=== PATIENT | female | born 1940 | race Caucasian/White ===

== ENCOUNTER → 2022-06-15 | Outpatient (CLI) | payer MEDICARE, BC ==
[2022-06-15 14:03] LABS: Adenovirus F 40/41 Not Detected (NOT DETECT); Astrovirus Not Detected (NOT DETECT); Campylobacter Sp Not Detected (NOT DETECT); Cryptosporidium Not Detected (NOT DETECT); Cyclospora Cayetanensis Not Detected (NOT DETECT); E. Coli O157 Not Detected (NOT DETECT); Entamoeba Histolytica Not Detected (NOT DETECT); Enteroaggregative E. coli-EAEC Not Detected (NOT DETECT); Enteropathogenic E. coli-EPEC Not Detected (NOT DETECT); Enterotoxigenic E. coli-ETEC Not Detected (NOT DETECT); Giardia Lamblia Not Detected (NOT DETECT); Norovirus GI/GII Not Detected (NOT DETECT); Plesiomonas Shigelloides Not Detected (NOT DETECT); Rotavirus A Not Detected (NOT DETECT); Salmonella Sp Not Detected (NOT DETECT); Sapovirus Not Detected (NOT DETECT); Shiga Toxin-prod E. coli-STEC Not Detected (NOT DETECT); Shigella/Enteroin E. coli-EIEC Not Detected (NOT DETECT); Vibrio Cholerae Not Detected (NOT DETECT); Vibrio Sp Not Detected (NOT DETECT); Yersinia Enterocolitica Not Detected (NOT DETECT)
== END | disposition home or self-care (01) ==
LOC: LAB SHORT 11:56 → LAB 11:56
PROVIDERS: Family Medicine
DX: R19.7 Diarrhea, unspecified (principal)
CPT/HCPCS: 87507

== ENCOUNTER 2023-03-03 09:00 | Observation (INO) | payer MEDICARE, BC ==
[~2023-03-03] VITALS: Ht 149.9 cm; Wt 49.5 kg
[~2023-03-03 09:00] MED LIST: ACET500 PO; AMLO5 PO; ASPI81CH PO; ATOR10 PO; Robaxin750 MG PO; TRAZ50 PO
[2023-03-04 20:50] LABS: BASOPHILS ABSOLUTE AUTO 0.25 K/mm3 (0.00-0.23); BASOPHILS PERCENT AUTO 2 % (0-2); EOSINOPHILS ABSOLUTE AUTO 0.35 K/mm3 (0.00-0.68); EOSINOPHILS PERCENT AUTO 2 % (0-6); Hematocrit 49.2 % (33.0-51.0); Hemoglobin 15.2 g/dL (11.5-16.0); IMMATURE GRAN PERCENT AUTO 1 % (0-1); LYMPHOCYTES ABSOLUTE AUTO 0.81 K/mm3 (0.84-5.20); LYMPHOCYTES PERCENT AUTO 6 % (21-46); MONOCYTES ABSOLUTE AUTO 1.01 K/mm3 (0.16-1.47); MONOCYTES PERCENT AUTO 7 % (4-13); Mean Corpuscular HGB 24.2 pg (26.0-34.0); Mean Corpuscular HGB Conc 30.9 g/dL (31.5-36.5); Mean Corpuscular Volume 79 fL (80-100); NEUTROPHILS ABSOLUTE AUTO 11.83 K/mm3 (1.96-9.15); NEUTROPHILS PERCENT AUTO 83 % (41-73); Platelet Count 528 K/mm3 (150-400); RDW Coefficient Variation 20.5 % (11.7-14.2); RDW Standard Deviation 55.9 fL (35.1-46.3); Red Blood Cell Count 6.27 M/mm3 (3.80-5.20); White Blood Cell Count 14.35 K/mm3 (4.00-11.30)
[2023-03-04 20:55] LABS: Mean Platelet Volume 11.2 fL (9.1-12.4)
[2023-03-04 20:57] VITALS: BP 166/105
[2023-03-04 21:13] LABS: Albumin, Blood 2.9 g/dL (3.4-5.0); Albumin/Globulin Ratio 0.7 (0.8-1.8); Bilirubin, Total 0.5 mg/dL (0.1-1.0); Bun/Creatinine Ratio 31.8 (12.0-20.0); Calcium, Blood 8.9 mg/dL (8.5-10.1); Creatinine, Blood 0.54 mg/dL (0.40-1.00); Total Protein, Blood 6.9 g/dL (6.4-8.2)
[2023-03-05 05:13] VITALS: BP 219/121
[2023-03-05 05:15] VITALS: BP 207/110
[2023-03-05 05:49] VITALS: BP 136/73
--- NOTE | 2023-03-05 06:54 | NUR ---
AOX4 BUT FORGETFUL AND ANXIOUS, HYPERTENSIVE, BEDREST, CONTINENT. ADMITTED AROUND 2100 LAST NIGHT. SKIN CLEAR EXCEPT FOR BRUISING FROM FALL. HYDRALAZINE EFFECTIVE FOR HYPERTENSION. PAIN MANAGED WITH SCHEDULED MEDS UNTIL PT REPORTED A HEAD ACHE NEAR END OF SHIFT, PRN OXY 5 MG GIVEN. CALLS APPROPRIATELY.
[2023-03-05 07:31] VITALS: BP 118/60
[2023-03-05] MEDS ORDERED: ACET325 PO (12:18)
[2023-03-05] MEDS ORDERED: TRAM50 PO (12:18)
[2023-03-05 15:06] VITALS: BP 128/58
--- NOTE | 2023-03-05 18:17 | NUR ---
DISCHARGE SUMMARY S/P COMPRESSION FX, A/OX4, VSS, TOLERATING PO, WORKED WITH THERAPY BUT HAD SOME STRUGGLES WITH STANDING AT THE BEDSIDE D/T GENERALIZED WEAKNESS AND FEAR. SHE DISCUSSED WITH PT AND THIS RN ABOUT HAVE A FEAR OF FALLING WHILE SHE WAS TRYING TO STAND. OTHER THAN WEAKNESS SHE WAS REPORTED TO BE STABLE TO DISCHARGE. DISCUSSED DISCHARGE INFORMATION WITH THE PATIENT AND HER DAUGHTER (BOOGIE) INCLUDING HOME CARE, MEDICATIONS, AND FOLLOW UP APPOINTMENTS WITH HER PCP. NO QUESTIONS AT TIME OF DISCHARGE, IV ACCESS REMOVED AND NO DEVICES IN PLACE AT TIME OF DC. SHE WAS PICKED UP BY EMS TO GO HOME VIA [facility].
[2023-03-18] MEDS ORDERED: ELIQUIS2.5 MG PO (11:44)
[2023-03-18] MEDS ORDERED: DOCU100 PO (11:44)
[2023-03-18] MEDS ORDERED: OCUFLOX511 LEFTEAR (11:45)
[2023-03-18] MEDS ORDERED: SENNA LAXATIVE8.6 MG PO (11:46)
[2023-03-18] MEDS ORDERED: OXYB5 PO (12:43)
[2023-04-09] MEDS ORDERED: LOSARTAN POTASS25 M2 PO (09:06)
[2023-04-12] MEDS ORDERED: MORP20L PO (10:21)
[2023-04-12] MEDS ORDERED: ATROPINE SULFATE2 M1 SL (10:22)
[2023-04-12] MEDS ORDERED: OXYB5 PO (10:24)
[2023-04-12] MEDS ORDERED: Ativan1 MG PO (10:24)
== END 2023-03-05 17:44 | disposition home health service (06) ==
LOC: ER 09:00 → MEDS 09:01 → ER 03-04 09:01 → MEDS 03-04 20:53 → ENPENDDIS 03-05 10:15 → MEDS 03-05 17:44
PROVIDERS: Emergency Medicine; ADMIT Internal Medicine
DX: S22.089A Unspecified fracture of T11-T12 vertebra, initial encounter for closed fracture (principal); S32.019A Unspecified fracture of first lumbar vertebra, initial encounter for closed fracture; S32.029A Unspecified fracture of second lumbar vertebra, initial encounter for closed fracture; S32.039A Unspecified fracture of third lumbar vertebra, initial encounter for closed fracture; Y04.2XXA Assault by strike against or bumped into by another person, initial encounter; E78.5 Hyperlipidemia, unspecified; Z86.73 Personal history of transient ischemic attack (TIA), and cerebral infarction without residual deficits; I10 Essential (primary) hypertension; S93.401A Sprain of unspecified ligament of right ankle, initial encounter
CPT/HCPCS: 73502; 73610; 80053; 85025; 96361; 96372; 96372-59; 96374; 96375; 97110; 97162; 97530; 99285-25; A9270; G0378; J0360; J1650; J1885; J3010; J7120

== ENCOUNTER 2023-03-13 05:03 | Emergency (ER) | payer MEDICARE, BC ==
[~2023-03-13] VITALS: Ht 157.5 cm; Wt 49.4 kg
[~2023-03-13 05:03] MED LIST changes: +ACET325 PO; +TRAM50 PO
[2023-03-13 05:48] LABS: Source, Urine Voided
[2023-03-13 05:54] LABS: BASOPHILS ABSOLUTE AUTO 0.29 K/mm3 (0.00-0.23); BASOPHILS PERCENT AUTO 2 % (0-2); EOSINOPHILS ABSOLUTE AUTO 0.44 K/mm3 (0.00-0.68); EOSINOPHILS PERCENT AUTO 3 % (0-6); Hematocrit 50.4 % (33.0-51.0); Hemoglobin 15.9 g/dL (11.5-16.0); IMMATURE GRAN ABSOLUTE AUTO 0.07 K/mm3 (0.00-0.10); IMMATURE GRAN PERCENT AUTO 1 % (0-1); LYMPHOCYTES ABSOLUTE AUTO 0.99 K/mm3 (0.84-5.20); LYMPHOCYTES PERCENT AUTO 7 % (21-46); MONOCYTES ABSOLUTE AUTO 1.13 K/mm3 (0.16-1.47); MONOCYTES PERCENT AUTO 8 % (4-13); Mean Corpuscular HGB 24.2 pg (26.0-34.0); Mean Corpuscular HGB Conc 31.5 g/dL (31.5-36.5); Mean Corpuscular Volume 77 fL (80-100); NEUTROPHILS ABSOLUTE AUTO 11.56 K/mm3 (1.96-9.15); NEUTROPHILS PERCENT AUTO 80 % (41-73); Platelet Count 441 K/mm3 (150-400); RDW Coefficient Variation 19.3 % (11.7-14.2); RDW Standard Deviation 50.4 fL (35.1-46.3); Red Blood Cell Count 6.56 M/mm3 (3.80-5.20); White Blood Cell Count 14.48 K/mm3 (4.00-11.30)
[2023-03-13 05:55] LABS: Appearance, Urine Clear (Clear); Bilirubin, Urine Neg (Neg); Blood, Urine Neg (Neg); Color, Urine Yellow (P-Yellow); Glucose Qualitative, Urine Neg (Neg); Ketones, Urine Neg (Neg); Leukocyte Esterase, Urine Neg (Neg); Nitrite, Urine Neg (Neg); Protein, Urine Neg (Neg); Urobilinogen, Urine NORM (Normal)
[2023-03-13 06:15] VITALS: BP 165/99
[2023-03-13 06:17] LABS: Albumin, Blood 3.4 g/dL (3.4-5.0); Albumin/Globulin Ratio 0.8 (0.8-1.8); Bilirubin, Total 0.6 mg/dL (0.1-1.0); Bun/Creatinine Ratio 21.1 (12.0-20.0); Calcium, Blood 9.3 mg/dL (8.5-10.1); Creatinine, Blood 0.48 mg/dL (0.40-1.00); Globulin, Blood 4.1 g/dL (2.2-4.0); Total Protein, Blood 7.5 g/dL (6.4-8.2)
[2023-03-13] MEDS ORDERED: POTA10T PO (07:08)
[2023-03-18] MEDS ORDERED: DOCU100 PO (11:44)
[2023-03-18] MEDS ORDERED: ELIQUIS2.5 MG PO (11:44)
[2023-03-18] MEDS ORDERED: OCUFLOX511 LEFTEAR (11:45)
[2023-03-18] MEDS ORDERED: SENNA LAXATIVE8.6 MG PO (11:46)
[2023-03-18] MEDS ORDERED: OXYB5 PO (12:43)
[2023-04-09] MEDS ORDERED: LOSARTAN POTASS25 M2 PO (09:06)
[2023-04-12] MEDS ORDERED: MORP20L PO (10:21)
[2023-04-12] MEDS ORDERED: ATROPINE SULFATE2 M1 SL (10:22)
[2023-04-12] MEDS ORDERED: OXYB5 PO (10:24)
[2023-04-12] MEDS ORDERED: Ativan1 MG PO (10:24)
== END 2023-03-13 10:48 | disposition home or self-care (01) ==
LOC: ER 05:03
PROVIDERS: Student in an Organized Health Care Education/Training Program
DX: R25.3 Fasciculation (principal); E87.6 Hypokalemia; D72.829 Elevated white blood cell count, unspecified; I10 Essential (primary) hypertension; Z79.899 Other long term (current) drug therapy; E78.5 Hyperlipidemia, unspecified
CPT/HCPCS: 80053; 81003; 83605; 85025; 93005; 93010; 96365; 96366; 99284-25; A9270; J3475

== ENCOUNTER 2023-03-14 20:49 | Inpatient (IN) | payer MEDICARE, BC ==
[~2023-03-14] VITALS: Ht 157.5 cm; Wt 48.3 kg
[~2023-03-14 20:49] MED LIST changes: +POTA10T PO
[2023-03-14 21:16] LABS: BASOPHILS ABSOLUTE AUTO 0.29 K/mm3 (0.00-0.23); BASOPHILS PERCENT AUTO 2 % (0-2); EOSINOPHILS ABSOLUTE AUTO 0.47 K/mm3 (0.00-0.68); EOSINOPHILS PERCENT AUTO 3 % (0-6); Hematocrit 48.3 % (33.0-51.0); Hemoglobin 15.4 g/dL (11.5-16.0); IMMATURE GRAN ABSOLUTE AUTO 0.11 K/mm3 (0.00-0.10); IMMATURE GRAN PERCENT AUTO 1 % (0-1); LYMPHOCYTES ABSOLUTE AUTO 1.06 K/mm3 (0.84-5.20); LYMPHOCYTES PERCENT AUTO 6 % (21-46); MONOCYTES ABSOLUTE AUTO 1.21 K/mm3 (0.16-1.47); MONOCYTES PERCENT AUTO 7 % (4-13); Mean Corpuscular HGB 24.5 pg (26.0-34.0); Mean Corpuscular HGB Conc 31.9 g/dL (31.5-36.5); Mean Corpuscular Volume 77 fL (80-100); NEUTROPHILS ABSOLUTE AUTO 13.96 K/mm3 (1.96-9.15); NEUTROPHILS PERCENT AUTO 82 % (41-73); Platelet Count 428 K/mm3 (150-400); RDW Coefficient Variation 19.2 % (11.7-14.2); RDW Standard Deviation 49.2 fL (35.1-46.3); Red Blood Cell Count 6.28 M/mm3 (3.80-5.20)
[2023-03-14 21:27] LABS: International Normalized Ratio 1.16; Prothrombin Time Results 12.1 Sec (9.7-11.5)
[2023-03-14 21:43] LABS: Albumin, Blood 3.1 g/dL (3.4-5.0); Albumin/Globulin Ratio 0.8 (0.8-1.8); Bilirubin, Total 0.5 mg/dL (0.1-1.0); Bun/Creatinine Ratio 23.8 (12.0-20.0); Calcium, Blood 8.9 mg/dL (8.5-10.1); Creatinine, Blood 0.63 mg/dL (0.40-1.00); Globulin, Blood 3.9 g/dL (2.2-4.0); Potassium, Blood 3.7 mmol/L (3.5-5.5)
[2023-03-14 22:28] LABS: Magnesium, Blood 2.3 mg/dL (1.6-2.4)
[2023-03-14 23:00] LABS: Appearance, Urine Clear (Clear); Bilirubin, Urine Neg (Neg); Blood, Urine Neg (Neg); Color, Urine Yellow (P-Yellow); Glucose Qualitative, Urine Neg (Neg); Ketones, Urine Neg (Neg); Leukocyte Esterase, Urine Neg (Neg); Nitrite, Urine Neg (Neg); Protein, Urine Neg (Neg); Source, Urine Clean Catch; Urobilinogen, Urine 1+ (Normal)
[2023-03-15 02:41] VITALS: BP 149/136
[2023-03-15 03:23] VITALS: BP 121/70
--- NOTE | 2023-03-15 04:13 | NUR ---
SHIFT SUMMARY PT UP FROM ED, LEFT SIDED WEAKNESS. PT ALERT AND ORIENTED, SLOW TO RESPONSE AT TIMES. PT PENDING MRI AND PT/OT EVAL. PT WITH LIMITED MOBILITY TO LEFT SIDE, PT REMAINS IN BED. MEDICATED X 1 PER EMAR FOR PAIN, EFFECTIVE. WILL CONTINUE TO MONITOR. CALL LIGHT WITHIN REACH.
[2023-03-15 04:50] LABS: BASOPHILS ABSOLUTE AUTO 0.26 K/mm3 (0.00-0.23); BASOPHILS PERCENT AUTO 2 % (0-2); EOSINOPHILS ABSOLUTE AUTO 0.49 K/mm3 (0.00-0.68); EOSINOPHILS PERCENT AUTO 3 % (0-6); Hematocrit 46.3 % (33.0-51.0); Hemoglobin 14.5 g/dL (11.5-16.0); IMMATURE GRAN ABSOLUTE AUTO 0.08 K/mm3 (0.00-0.10); IMMATURE GRAN PERCENT AUTO 1 % (0-1); LYMPHOCYTES ABSOLUTE AUTO 1.17 K/mm3 (0.84-5.20); LYMPHOCYTES PERCENT AUTO 8 % (21-46); MONOCYTES ABSOLUTE AUTO 1.06 K/mm3 (0.16-1.47); MONOCYTES PERCENT AUTO 7 % (4-13); Mean Corpuscular HGB 24.4 pg (26.0-34.0); Mean Corpuscular HGB Conc 31.3 g/dL (31.5-36.5); Mean Corpuscular Volume 78 fL (80-100); NEUTROPHILS PERCENT AUTO 80 % (41-73); Platelet Count 378 K/mm3 (150-400); RDW Coefficient Variation 18.8 % (11.7-14.2); RDW Standard Deviation 51.2 fL (35.1-46.3); Red Blood Cell Count 5.94 M/mm3 (3.80-5.20); White Blood Cell Count 14.86 K/mm3 (4.00-11.30)
[2023-03-15 05:03] LABS: Mean Platelet Volume 11.3 fL (9.1-12.4)
[2023-03-15 06:38] LABS: Albumin, Blood 2.7 g/dL (3.4-5.0); Albumin/Globulin Ratio 0.8 (0.8-1.8); Bilirubin, Total 0.4 mg/dL (0.1-1.0); Bun/Creatinine Ratio 31.4 (12.0-20.0); Calcium, Blood 8.7 mg/dL (8.5-10.1); Creatinine, Blood 0.57 mg/dL (0.40-1.00); Globulin, Blood 3.6 g/dL (2.2-4.0); Magnesium, Blood 2.2 mg/dL (1.6-2.4); Potassium, Blood 3.7 mmol/L (3.5-5.5); Total Protein, Blood 6.3 g/dL (6.4-8.2)
[2023-03-15 08:10] VITALS: BP 226/106
[2023-03-15 09:46] VITALS: BP 177/96
--- NOTE | 2023-03-15 15:39 | NUR ---
PATIENT TO MRI NOW, HARD PELLET STOOLS
[2023-03-15 16:31] VITALS: BP 154/100
--- NOTE | 2023-03-15 17:48 | NUR ---
AT 1011 I WENT TO [facility] SCAN THAT PATIENT AND FOUND A LUMP WHEN BLADDER SCANNING THE PATIENT. THE NURSE TAN WAS NOTIFED WHEN I NOTICED THE LUMP.
--- NOTE | 2023-03-15 18:36 | NUR ---
PATIENT ALERT TO SELF , STAFF, AND FAMOILY, MULTIPLE REPOSITIONING AND HOURLY BED VARGHESE USE, PATIENT IMPACTED, REPORTED TO DR DAV AGUILAR DULCOLAX ORDER, MRI DONE TODAY, NO RESLUTS AVAILBLE PRESENTLY, SBP 166, DENIES H/A, CALL LIGHT WITH IN REACH, WILL RELAY TO PM RN
[2023-03-15 19:16] VITALS: BP 155/88
--- NOTE | 2023-03-15 20:40 | NUR ---
PER PHARMACY, A NEW ORDER WAS NEEDED FOR DULCOLAX FOR THE PT GIVEN IT WAS ORGINALLY ORDERED FOR 1824. A NEW ORDER WAS PUT IN FOR PO DULCOLAX.
--- NOTE | 2023-03-15 23:23 | NUR ---
NOTIIED ANNIKA POLLARD THAT THE PTS MRI RESULTS WERE BACK. NO NEW ORDERS AT THIS TIME.
[2023-03-16 03:15] VITALS: BP 166/91
--- NOTE | 2023-03-16 04:31 | NUR ---
SHIFT SUMMARY; PT CALLED Q1HR OR LESS TO REQUEST TO BE PUT ON THE BED VARGHESE AND OR BE REPOSITIONED T/O THE NIGHT. OFFERED THE PT A PUREWICK, WHICH SHE LEFT IN PLACE FOR A FEW HOURS BEFORE ENDORSING THAT THE PUREWICK WAS BURNING HER SKIN. WE THEN REMOVED THE PUREWICK FOR THE REMAINDER OF THE NIGHT. THE PT HAS HAS A FEW SMALL BM'S T/O THE NIGHT. THE LAST BM WAS A SMALL SOFT PELLET. THE PT ENDORSES BACK PAIN THIS AM, PRN TYLENOL ADMINISTERED. TELE IS IN PLACE-S[facility]US IN THE 90'S. THE PT DENIES ANY SOB, CHEST PAIN/PRESSURE OR N/V THIS SHIFT. CURRENTLY THE PT IS SLEEPING IN BED WITH THE BED IN THE LOWEST POSITION AND THE CALL LIGHT AT BEDSIDE.
[2023-03-16 05:17] LABS: Mean Corpuscular HGB 24.5 pg (26.0-34.0); Mean Corpuscular HGB Conc 31.9 g/dL (31.5-36.5); Mean Corpuscular Volume 77 fL (80-100); Platelet Count 432 K/mm3 (150-400); RDW Coefficient Variation 19.2 % (11.7-14.2); Red Blood Cell Count 6.11 M/mm3 (3.80-5.20)
[2023-03-16 05:42] LABS: Bun/Creatinine Ratio 36.2 (12.0-20.0); Calcium, Blood 8.8 mg/dL (8.5-10.1); Creatinine, Blood 0.47 mg/dL (0.40-1.00); Potassium, Blood 3.6 mmol/L (3.5-5.5)
[2023-03-16 07:47] VITALS: BP 151/92
--- NOTE | 2023-03-16 13:52 | NUR ---
DAUGHTER AT BEDSIDE, STARTED HOME PAIN MEDICATIONS, CALL LIGHT WITH IN REACH
[2023-03-16 17:49] VITALS: BP 193/85
--- NOTE | 2023-03-16 18:38 | NUR ---
PATIENT ALERT AND ORIENTED TO SELF AND STAFF, VERY FORGETFUL, FAMILY HELPFUL AT BEDSIDE, BM, VSS, HTN, STARTED TRAMADOL, PATIENT REPORTS RELIEF, FAMILY CONTACTING CASE MANAGEMENT, REPORTED TO FAMILY CASE MANAGEMENT WILL FOLLOW UP WITH THEM, CALL LIGHT WITH IN REACH, WILL RELAY TO PM RN
[2023-03-16 19:23] VITALS: BP 145/82
--- NOTE | 2023-03-17 04:26 | NUR ---
SHIFT SUMMARY; NO ACUTE CHANGES OVERNIGHT. THE PT IS AXO X3 AND BEDREST. TELE IS IN PLACE. THE PT WAS MEDICATED AT THE BEGINNING OF SHIFT FOR BACK PAIN AND HAS SINCE BEEN SLEEPING. THE PT DENIES ANY SOB OR CHEST PAIN/PRESSURE. CURRENTLY THE PT IS SLEEPING IN BED WITH THE BED IN THE LOWEST POSITION AND THE CALL LIGHT AT BEDSIDE. FIRE SAFETY WAS MAINAINED T/O THE SHIFT.
[2023-03-17 04:50] VITALS: BP 128/67
[2023-03-17 07:37] VITALS: BP 123/63
--- NOTE | 2023-03-17 10:41 | NUR ---
DR DEMARCO ROUNDED, PATIENT REPORTS FEELING MUCH BETTER TODAY WITH THE TRAMADOL ON BOARD, ALERT AND OREINTED SELF STAFF THING AND PLACE. NO ACUTE CHANGES, NO MEDICATION OR TREATMENT CHANGES FROM DR DEMARCO, CALL LIGHT WITH IN REACH
--- NOTE | 2023-03-17 13:26 | NUR ---
PATIENT HAS A FRIEND VISITING
[2023-03-17 15:57] VITALS: BP 106/55
--- NOTE | 2023-03-17 18:34 | NUR ---
NO ACUTE CHANGES, ALERTNESS AND ORIENTATION IMPROVED, MORE PLEASANT TO CARE, MEDICATED WITH TRAMADOL AND TYLENOL, FAMILY VISITED THROUGH OUT THE DAY, PALLIATIVE CARE CONSULT ENTERED, CASE MANAGEMENT ASSIGNED, LEFT SIDED WEEAKNESS, CALL LIGHT WITH IN REACH, MAKES NEEDS KNOWN, WILL RELAY TO PM RN
[2023-03-17 19:57] VITALS: BP 115/61
[2023-03-18 04:18] VITALS: BP 145/68
--- NOTE | 2023-03-18 05:25 | NUR ---
SHIFT SUMMARY; NO ACUTE CHANGES OVERNIGHT. THE PT IS AXO X4 AND BEDREST R/T WEAKNESS. THE PT SLEPT FOR THE MAJORITY OF THE NIGHT. THE PT WAS MEDICATED A FEW TIMES FOR BACK PAIN W/ GOOD RELIEF. THE PT DENIES ANY SOB, CHEST PAIN/PRESSURE OR N/V AT THIS TIME. CURRENLTY THE PT IS SLEPEING IN BED WITH THE BED IN THE LOWEST POSITION AND THE CALL LIGHT AT BEDSIDE. FIRE SAFETY MAINTAINED T/O THE SHIFT.
[2023-03-18 06:16] LABS: Hematocrit 46.1 % (33.0-51.0); Hemoglobin 14.1 g/dL (11.5-16.0); Mean Corpuscular HGB 24.2 pg (26.0-34.0); Mean Corpuscular HGB Conc 30.6 g/dL (31.5-36.5); Mean Corpuscular Volume 79 fL (80-100); Mean Platelet Volume 11.4 fL (9.1-12.4); Platelet Count 492 K/mm3 (150-400); RDW Coefficient Variation 18.7 % (11.7-14.2); RDW Standard Deviation 52.4 fL (35.1-46.3); Red Blood Cell Count 5.83 M/mm3 (3.80-5.20); White Blood Cell Count 12.97 K/mm3 (4.00-11.30)
[2023-03-18 07:35] VITALS: BP 172/88
[2023-03-18 11:43] LABS: Albumin, Blood 2.6 g/dL (3.4-5.0); Albumin/Globulin Ratio 0.8 (0.8-1.8); Bilirubin, Total 0.3 mg/dL (0.1-1.0); Calcium, Blood 8.6 mg/dL (8.5-10.1); Creatinine, Blood 0.54 mg/dL (0.40-1.00); Globulin, Blood 3.4 g/dL (2.2-4.0); Potassium, Blood 4.2 mmol/L (3.5-5.5)
[2023-03-18] MEDS ORDERED: DOCU100 PO ×2 (11:44)
[2023-03-18] MEDS ORDERED: ELIQUIS2.5 MG PO ×2 (11:44)
[2023-03-18] MEDS ORDERED: OCUFLOX511 LEFTEAR ×2 (11:45)
[2023-03-18] MEDS ORDERED: SENNA LAXATIVE8.6 MG PO ×2 (11:46)
[2023-03-18] MEDS ORDERED: OXYB5 PO ×2 (12:43)
--- NOTE | 2023-03-18 15:42 | NUR ---
PT DISCHARGED FROM THE UNIT. IV REMOVED. DISCHARGE INSTRUCTIONS REVIEWED WITH FAMILY AND PT. MEDICATION FAXED TO [facility]. PT LEFT UNIT VIA WC WITH TRANSPROT.
== END 2023-03-18 15:10 | disposition home health service (06) | DRG 65 ==
LOC: ER 20:49 → MEDS 20:50 → ENPENDDIS 03-18 10:47 → MEDS 03-18 15:10
PROVIDERS: Emergency Medicine; Internal Medicine; Student in an Organized Health Care Education/Training Program; ADMIT Student in an Organized Health Care Education/Training Program
DX: I63.9 Cerebral infarction, unspecified (principal); G81.14 Spastic hemiplegia affecting left nondominant side; R64 Cachexia; I10 Essential (primary) hypertension; E78.5 Hyperlipidemia, unspecified; D45 Polycythemia vera; I48.0 Paroxysmal atrial fibrillation; Z87.81 Personal history of (healed) traumatic fracture; Z79.82 Long term (current) use of aspirin; Z79.899 Other long term (current) drug therapy; Z86.73 Personal history of transient ischemic attack (TIA), and cerebral infarction without residual deficits; Z68.21 Body mass index [BMI] 21.0-21.9, adult
CPT/HCPCS: 36415; 70450; 70551; 80048; 80053; 81003; 82947; 83735; 85025; 85027; 85610; 85730; 93005; 93010; 96372; 97110; 97110-CQ; 97112; 97161; 97530; 97530-CQ; 99285-25; A9270; G0378; J1650

== ENCOUNTER 2023-04-09 08:00 | Inpatient (IN) | payer MEDICARE, BC ==
[~2023-04-09] VITALS: Ht 157.5 cm; Wt 45.6 kg
[~2023-04-09 08:00] MED LIST changes: +DOCU100 PO; +ELIQUIS2.5 MG PO; +OCUFLOX511 LEFTEAR; +OXYB5 PO; +SENNA LAXATIVE8.6 MG PO
[2023-04-09 08:28] LABS: BASOPHILS ABSOLUTE AUTO 0.26 K/mm3 (0.00-0.23); BASOPHILS PERCENT AUTO 2 % (0-2); EOSINOPHILS ABSOLUTE AUTO 0.54 K/mm3 (0.00-0.68); EOSINOPHILS PERCENT AUTO 4 % (0-6); Hematocrit 48.6 % (33.0-51.0); Hemoglobin 15.1 g/dL (11.5-16.0); IMMATURE GRAN ABSOLUTE AUTO 0.07 K/mm3 (0.00-0.10); IMMATURE GRAN PERCENT AUTO 1 % (0-1); LYMPHOCYTES ABSOLUTE AUTO 1.24 K/mm3 (0.84-5.20); LYMPHOCYTES PERCENT AUTO 9 % (21-46); MONOCYTES ABSOLUTE AUTO 0.69 K/mm3 (0.16-1.47); MONOCYTES PERCENT AUTO 5 % (4-13); Mean Corpuscular HGB 24.2 pg (26.0-34.0); Mean Corpuscular HGB Conc 31.1 g/dL (31.5-36.5); Mean Corpuscular Volume 78 fL (80-100); NEUTROPHILS ABSOLUTE AUTO 11.03 K/mm3 (1.96-9.15); NEUTROPHILS PERCENT AUTO 80 % (41-73); Platelet Count 547 K/mm3 (150-400); RDW Coefficient Variation 19.8 % (11.7-14.2); RDW Standard Deviation 51.6 fL (35.1-46.3); Red Blood Cell Count 6.23 M/mm3 (3.80-5.20); White Blood Cell Count 13.83 K/mm3 (4.00-11.30)
[2023-04-09 08:46] LABS: Albumin, Blood 3.1 g/dL (3.4-5.0); Albumin/Globulin Ratio 0.9 (0.8-1.8); Bilirubin, Total 0.5 mg/dL (0.1-1.0); Bun/Creatinine Ratio 24.1 (12.0-20.0); Calcium, Blood 8.9 mg/dL (8.5-10.1); Creatinine, Blood 0.5 mg/dL (0.40-1.00); Globulin, Blood 3.6 g/dL (2.2-4.0); Potassium, Blood 3.9 mmol/L (3.5-5.5); Total Protein, Blood 6.7 g/dL (6.4-8.2)
[2023-04-09] MEDS ORDERED: LOSARTAN POTASS25 M2 PO ×2 (09:06)
[2023-04-09 13:07] VITALS: BP 158/75
[2023-04-09 15:46] VITALS: BP 157/89
--- NOTE | 2023-04-09 16:05 | NUR ---
PT ADMITTED FROM THE ER, ACCOMPANIED BY HER DAUGHTER, ORIENTED PT TO ROOM AND CALL SYSTEM, ASSESSED PT FOR IGNITION AND FIRE RISK, NO FINDINGS, EDUCATION PROVIDED, REPORT TO MOLLY PETERSON TO ASSUME CARE
[2023-04-09 17:42] LABS: CHOL/HDL RATIO 2.6; Cholesterol 165 mg/dL (50-200); HDL Cholesterol 63 mg/dL (>39); LDL/HDL RATIO 1.4; Low Density Lipoprotein Chol 86 mg/dL (0-110); Triglycerides 78 mg/dL (30-160); Very Low Density Lipoprot Chol 15 mg/dL (6-32)
[2023-04-09 19:29] VITALS: BP 146/74
[2023-04-10 03:31] VITALS: BP 172/94
--- NOTE | 2023-04-10 04:39 | NUR ---
MAKES NEEDS KNOWN, CT AND MRI RESULTS BACK, ECHO TO BE DONE TODAY, CT AND MRI RESULTS HAVE NOT BEEN DISSCUSED WITH PATIENT AND FAMILY, LEFT SIDE DEFICIT, HTN 172/94, NO PRN HTM MEDICATIONS, PATIENT TO HAVE SCHEDULED HTN MEDS THIS AM, ALERT AND OREITNED TO SELF, FAMILY, AND PERSON. CALL LIGHT WITH IN REACH, WILL RELAY TO PM RN
[2023-04-10 05:17] LABS: BASOPHILS ABSOLUTE AUTO 0.28 K/mm3 (0.00-0.23); BASOPHILS PERCENT AUTO 2 % (0-2); EOSINOPHILS ABSOLUTE AUTO 0.65 K/mm3 (0.00-0.68); EOSINOPHILS PERCENT AUTO 5 % (0-6); Hematocrit 48.2 % (33.0-51.0); Hemoglobin 14.5 g/dL (11.5-16.0); IMMATURE GRAN ABSOLUTE AUTO 0.07 K/mm3 (0.00-0.10); IMMATURE GRAN PERCENT AUTO 1 % (0-1); LYMPHOCYTES ABSOLUTE AUTO 1.37 K/mm3 (0.84-5.20); LYMPHOCYTES PERCENT AUTO 10 % (21-46); MONOCYTES ABSOLUTE AUTO 0.87 K/mm3 (0.16-1.47); MONOCYTES PERCENT AUTO 6 % (4-13); Mean Corpuscular HGB 23.4 pg (26.0-34.0); Mean Corpuscular HGB Conc 30.1 g/dL (31.5-36.5); Mean Corpuscular Volume 78 fL (80-100); Mean Platelet Volume 12.1 fL (9.1-12.4); NEUTROPHILS ABSOLUTE AUTO 11.02 K/mm3 (1.96-9.15); NEUTROPHILS PERCENT AUTO 77 % (41-73); Platelet Count 494 K/mm3 (150-400); RDW Coefficient Variation 19.5 % (11.7-14.2); RDW Standard Deviation 51.2 fL (35.1-46.3); White Blood Cell Count 14.26 K/mm3 (4.00-11.30)
[2023-04-10 05:50] LABS: Bun/Creatinine Ratio 33.1 (12.0-20.0); Calcium, Blood 9.1 mg/dL (8.5-10.1); Creatinine, Blood 0.48 mg/dL (0.40-1.00); Potassium, Blood 4.3 mmol/L (3.5-5.5)
[2023-04-10 08:44] VITALS: BP 149/71
--- NOTE | 2023-04-10 15:45 | NUR ---
Pt's daughter Mabel has decided to take pt home with hospice. 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 Mabel states she has been a [employer] for many years, and is very comfortable caring for her mom at home. The patient has also made it clear she does not wish to go to rehab, so her daughter is honoring the pt's wishes. They request [facility], as that is their current home health agency. Referral given to [facility] [employer]. Palliative care will remain available.
[2023-04-10 16:25] VITALS: BP 105/55
--- NOTE | 2023-04-10 16:55 | NUR ---
SHIFT SUMMARHY- PT IS A/O, PLESANT AND COOPERATIVE. HER APPETITE IS POOR THIS SHIFT. SPOKE TO PALATIVE CARE ABOUT THIS PT, PALLATIVE CARE SPOKE WITH DAUGHTER. HER BED IS IN THE LOW POSITION AND CALL LIGHT IS WITIN REACH. SHE WORKED WITH PT AND OT THIS SHIFT. WAS UP TO THE CHAIR FOR A SHORT WHILE. MAX ASSIST BACK TO BED. EDUCATED ON FIRE SAFTY.
[2023-04-10 19:25] VITALS: BP 134/81
[2023-04-10 23:24] VITALS: BP 170/87
[2023-04-11 02:52] VITALS: BP 194/103
--- NOTE | 2023-04-11 03:04 | NUR ---
REPORTED HEAD CT RESULTS TO DR GOMEZ, BP 194/103, ONE TIME DOSE OF HYDRALAZINE ORDER, ST ORDERS IN, WILL RELAY TO JANEEN CARRASCO
[2023-04-11 04:20] VITALS: BP 177/92
--- NOTE | 2023-04-11 05:23 | NUR ---
PATEINTS LEFT FACIAL DROP INCREASED, PATEINT WAS HAVING A HARD TIME FORMING WORDS, CT DONE OF THE HEAD SHOWING THE RIGHT MCA INCREASED, ST ORDERED, BP 190'S, MEDICATED WITH A ONE TIME HYDRALAZINE ORDER PER , PATIENT ABLE TO FORM WORDS EASIER THIS AM, PUPILS BRISK, LEFT SIDED WEAKNESS CONTINUES, PALLIATIVE CARE TO FOLLOW UP WITH FAMILY TODAY, WILL RELAY TO PM RN
[2023-04-11 07:17] VITALS: BP 185/97
--- NOTE | 2023-04-11 18:17 | NUR ---
SHIFT SUMMARY- PT IS A/O, PLESANT AND COOPERATIVE. SHE SLEPT FOR MUCH OF THIS SHIFT. INC VOID. RECIEVED A BEDBATH THIS MORNING. FAMILY AT BEDSIDE. SHE WORKED WITH ST THIS SHIFT. DIFFICULTY WITH THIN LIQUIDS. HER BED IS IN THE LOW POSITON AND CALL LIGHT IS WITHIN REACH.
--- NOTE | 2023-04-12 04:28 | NUR ---
SHIFT SUMMARY PATIENT REMAINS ON COMFORT CARE. PT HAS SLEP T/O MOST OF THE NIGHT. MINIMAL PO INTAKE NOTED, ASSISTED WITH SPONGING FLUID INTO PTS MOUTH. PT HAS BEEN REPOSOITIONED T/O THE NIGHT, BRIEF CHAGED PRN. MINIMAL OUTPUT NOTED. PT HAS BEEN ABLE TO MAKE NEEDS KNOWN. MEDICATED TWICE FOR COMFORT. NO ACUTE EVENTS NOTED T/O THE NIGHT. PLAN FOR PT TO D/C HOME ON HOSPICE TODAY. NO IGNITION SOURCE NOTED
[2023-04-12] MEDS ORDERED: MORP20L PO ×2 (10:21)
[2023-04-12] MEDS ORDERED: ATROPINE SULFATE2 M1 SL ×2 (10:22)
[2023-04-12] MEDS ORDERED: Ativan1 MG PO ×2 (10:24)
[2023-04-12] MEDS ORDERED: OXYB5 PO ×2 (10:24)
--- NOTE | 2023-04-12 10:59 | NUR ---
SHIFT SUMMARY PATIENT BEING DISCHARGED HOME WITH HOSPICE. FAMILY PARTICIPATING IN MOST ADLS THIS SHIFT. DISCHARGE INSTRUCTIONS PROVIDED, AND QUESTIONS ANSWERED. NO IVS. PATIENT NOT ALERT ENOUGH TO TAKE MORNING MEDICATIONS, HELD. PLAN IS TO HAVE TRANSPORT BY AMBULANCE AND STRETCHER. WILL CONTINUE TO MONITOR
== END 2023-04-12 13:54 | disposition hospice, inpatient (51) | DRG 66 ==
LOC: ER 08:00 → MEDS 08:01 → ENPENDDIS 04-12 09:18 → MEDS 04-12 13:54
PROVIDERS: Emergency Medicine; ADMIT Family Medicine
DX: I63.511 Cerebral infarction due to unspecified occlusion or stenosis of right middle cerebral artery (principal); I67.1 Cerebral aneurysm, nonruptured; I10 Essential (primary) hypertension; I48.0 Paroxysmal atrial fibrillation; D72.829 Elevated white blood cell count, unspecified; D75.839 Thrombocytosis, unspecified; E78.5 Hyperlipidemia, unspecified; Z51.5 Encounter for palliative care; Z66 Do not resuscitate; D45 Polycythemia vera; R29.810 Facial weakness; Z79.82 Long term (current) use of aspirin; Z79.01 Long term (current) use of anticoagulants; Z79.899 Other long term (current) drug therapy; Z87.81 Personal history of (healed) traumatic fracture; Z98.890 Other specified postprocedural states
CPT/HCPCS: 36415; 70450; 70496; 70498; 70551; 76705; 80048; 80053; 80061; 84484; 85025; 92610; 93005; 93010; 93306; 97112; 97161; 97166; 97530; 99285-25; A9270; G0378; J0360; Q9967